=== PATIENT | female | born 2000 | race Caucasian/White ===

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

== ENCOUNTER → 2020-06-22 | Outpatient (CLI) | payer OTHER ==
[~2020-06-22] MED LIST changes: -ACETAMINOPHEN 650 MG SUPP PR ONE; -LR 1,000 ML IV ONE
== END ==
LOC: M PLALAB 10:49
PROVIDERS: ATTEND Obstetrics & Gynecology
DX: Z13.79 Encounter for other screening for genetic and chromosomal anomalies (principal)

== ENCOUNTER → 2020-06-22 | Outpatient (REF) | payer OTHER ==
[2020-06-22 19:59] LABS: CHLAMYDIA DNA AMPLIFICATION NEGATIVE (NEGATIVE); GC DNA AMPLIFICATION NEGATIVE (NEGATIVE)
== END ==
LOC: M SFHCWAGY 16:46
PROVIDERS: ATTEND Obstetrics & Gynecology
DX: R10.2 Pelvic and perineal pain (principal)
CPT/HCPCS: 36415; 87661; G0463

== ENCOUNTER → 2020-06-28 | Outpatient (CLI) | payer OTHER ==
--- NOTE | 2020-06-29 08:25 | REP ---
INDICATION: R10.2 PELVIC PAIN COMPARISON: 07/29/2018 TECHNIQUE: Transabdominal pelvic ultrasound with color Doppler evaluation of the ovaries. FINDINGS: Bladder is unremarkable and measures 12.2 x 9.5 x 10.5 cm. Normal anteverted uterus measures 7.7 x 3.1 x 4.1 cm. The endometrial complex measures 4.2 mm thickness. IUD identified in central satisfactory position. Bilateral ovaries are normal in appearance and vascularity without evidence for torsion. Right ovary measures 4.7 x 1.8 x 2.8 cm; R I = 0.44. Left ovary measures 4.1 x 2.3 x 4.3 cm; R I = 0.54. No pelvic fluid or adnexal mass lesion. IMPRESSION: Normal pelvic ultrasound. IUD in satisfactory position. <Electronically signed by Veto Dee > 06/29/20 [id number]
== END ==
LOC: M WHC 13:28
PROVIDERS: ATTEND Obstetrics & Gynecology
DX: R10.2 Pelvic and perineal pain (principal)